=== PATIENT | male | born 1975 | race Caucasian/White ===

== ENCOUNTER 2019-07-26 22:11 | Emergency (ER) | payer BC ==
[~2019-07-26] VITALS: Ht 180.3 cm; Wt 91.6 kg
[~2019-07-26 22:11] MED LIST: FLE10 PO; TRAMADOL
[2019-07-26 22:38] VITALS: BP 144/89; Ht 180.3 cm; Wt 91.6 kg
== END 2019-07-27 01:07 | disposition home or self-care (01) ==
LOC: ED 22:11
DX: T15.02XA Foreign body in cornea, left eye, initial encounter (principal); Z88.6 Allergy status to analgesic agent; X58.XXXA Exposure to other specified factors, initial encounter; Y93.89 Activity, other specified; Y92.89 Other specified places as the place of occurrence of the external cause; Y99.0 Civilian activity done for income or pay
CPT/HCPCS: J7050

== ENCOUNTER 2019-12-22 12:33 | Emergency (ER) | payer BC ==
[~2019-12-22] VITALS: Ht 180.3 cm; Wt 93.9 kg
[2019-12-22 13:51] VITALS: Ht 180.3 cm; Wt 93.9 kg
[2019-12-22 16:37] VITALS: BP 142/67
== END 2019-12-22 16:37 | disposition home or self-care (01) ==
LOC: ED 12:33
DX: M54.9 Dorsalgia, unspecified (principal); Z88.6 Allergy status to analgesic agent
CPT/HCPCS: J2270; Q0162